=== PATIENT | female | born 1995 | race Two or more races ===

== ENCOUNTER 2019-03-03 14:08 | Observation (INO) | payer MEDICAID ==
[~2019-03-03 14:08] MED LIST: PREN27TA7 OR
== END 2019-03-03 15:55 | disposition home or self-care (01) | DRG 861 ==
LOC: LDRP 14:08
PROVIDERS: ADMIT Specialist; ATTEND Specialist
DX: Z34.83 Encounter for supervision of other normal pregnancy, third trimester (principal); Z3A.40 40 weeks gestation of pregnancy
CPT/HCPCS: 59025; 76818; 81002; G0378

== ENCOUNTER 2019-03-05 10:10 | Observation (INO) | payer MEDICAID | END 2019-03-05 11:45 | disposition home or self-care (01) | DRG 566 | LOC: LDRP 10:10 | PROVIDERS: ADMIT Obstetrics & Gynecology; ATTEND Obstetrics & Gynecology | DX: O48.0 Post-term pregnancy (principal); O36.8330 Maternal care for abnormalities of the fetal heart rate or rhythm, third trimester, not applicable or unspecified; Z3A.40 40 weeks gestation of pregnancy | CPT/HCPCS: 59025; 76818; 81002; G0378 ==

== ENCOUNTER 2019-03-06 15:30 | Inpatient (IN) | payer MEDICAID ==
[2019-03-06] MEDS ORDERED: LACT. RINGERS/OXYTOCIN 20UNITS 1,000 ML IV SCH (16:07)
[2019-03-06] MEDS ORDERED: NALBUPHINE HCL 10 MG/1ml INJECTION IV PRN (16:15)
[2019-03-06] MEDS ORDERED: METHYLERGONOVINE MALEATE 0.2 MG/ML AMP IM PRN (16:15)
[2019-03-06] MEDS ORDERED: LIDOCAINE 2%HCL (LOCAL ANESTH.) INJ 20ML MDV ID ONE (16:15)
[2019-03-06] MEDS ORDERED: DERMOPLAST 60ML BOTTLE TOP PRN (16:15)
[2019-03-06] MEDS ORDERED: WITCH HAZEL-GLYCERIN PAD TOP PRN (16:15)
[2019-03-06] MEDS ORDERED: PHISODERM TOP SOLN 240ML BTL TOP PRN (16:15)
[2019-03-06] MEDS ORDERED: CARBOPROST TROMETHAMINE 250 MCG/1ML VIAL IM PRN (16:15)
[2019-03-06 17:21] LABS: Basophils # (auto) 0 uL; Basophils % (auto) 0.3 % (0.0-2.0); Eosinophils # (auto) 0.1 uL; Eosinophils % (auto) 0.4 % (0.0-7.0); Hematocrit 40.3 % (36.0-46.0); Hemoglobin 13.8 g/dL (12.2-16.2); Lymphocytes # (auto) 2.2 uL; Lymphocytes % (auto) 14.3 % (10.0-50.0); Mean Corpuscular Hemoglobin 32.5 pg (28.0-32.0); Mean Corpuscular Hgb Conc. 34.2 g/dL (32.0-36.0); Monocytes # (auto) 0.9 uL; Monocytes % (auto) 5.6 % (0.0-12.0); Neutrophils # (auto) 12.1 uL; Neutrophils % (auto) 79.4 % (37.0-80.0); Nucleated Red Blood Cells % 0.1 %; Platelet Count (auto) 178 10^3/uL (140-450); Red Blood Cells 4.24 10^6/uL (4.0-5.20); Red Cell Distribution Width 13.6 % (11.8-14.3); White Blood Cell 15.3 10^3/uL (4.4-10.8)
[2019-03-06 17:26] LABS: Urine Bacteria FEW /hpf (None Seen); Urine Blood Negative /uL (Negative); Urine Mucus FEW (None Seen); Urine Specific Gravity 1.022 (1.001-1.035); Urine WBC 3 /hpf (0 - 5)
[2019-03-06 17:35] LABS: INR < 0.93 (0.9-1.15); Partial Thromboplastin Time 26.2 sec (23.64-32.05)
[2019-03-06 17:36] LABS: Alcohol, Urine < 3.0 mg/dL (0-5); Amphetamine Screen, Urine NEGATIVE (NEGATIVE); Barbiturate Scree,Urine NEGATIVE (NEGATIVE); Benzodiazephine Screen, Urine NEGATIVE (NEGATIVE); Cannabinoid Screen, Urine NEGATIVE (NEGATIVE); Cocaine Screen, Urine NEGATIVE (NEGATIVE); Opiate Scree,Urine NEGATIVE (NEGATIVE); Phencyclidine Screen, Urine NEGATIVE (NEGATIVE)
[2019-03-06 17:37] LABS: Albumin 3.4 g/dL (3.4-5.0); Calcium 9.2 mg/dL (8.5-10.1); Potassium 3.2 mmol/L (3.5-5.1); Uric Acid 4.1 mg/dL (2.6-6.0)
[2019-03-06 17:40] LABS: Bilirubin, Total 0.2 mg/dL (0.2-1.0); Total Protein 7.5 g/dL (6.4-8.2)
[2019-03-06] MEDS: IBUPROFEN 600 MG TAB PO PRN (18:08)
--- NOTE | 2019-03-06 18:12 | NUR ---
received report on stable pt from Yarelis Watkins rn.
--- NOTE | 2019-03-06 19:30 | NUR ---
Ambulation: Patient OOB with standby assistance by RN. Patient ambulated to bathroom with steady gait. Patient able to void 500ML without difficulty. [facility] teaching provided with returned demonstration by patient. Clean gown provided and bed linen changed. Patient ambulated back to bed with steady gait and no distress noted.
[2019-03-06 23:30] VITALS: BP 102/64
[2019-03-07 02:46] VITALS: BP 102/67
[2019-03-07 07:20] VITALS: BP 108/57
[2019-03-07 10:58] VITALS: BP 113/65
[2019-03-07 15:30] VITALS: BP 108/71
[2019-03-07] MEDS: IBUPROFEN 600 MG TAB PO PRN (15:44)
[2019-03-07 19:30] VITALS: BP 103/63
--- NOTE | 2019-03-07 19:40 | NUR ---
Discharge: Discharge instructions given as ordered. Pt encouraged to follow up with [facility] as instructed. All questions and concerns addressed. Patient verbalized understanding. Medication reconciliation completed and copy given to patient. All required/requested vaccines given and copies of vaccinations given to patient. Patient encouraged to prepare to depart unit.
[2019-03-07 20:15] VITALS: BP 102/65
--- NOTE | 2019-03-07 20:15 | NUR ---
Discharge: Patient ambulates to vehicle per patient request, with steady gait. All personal belongings accounted for, DC instructions in hand, accompanied by staff and family member. No distress noted at time of departure, no adverse changes in status since initial assessment.
[2019-03-08 05:07] LABS: RPR Non Reactive (Non Reactive)
== END 2019-03-07 20:15 | disposition home or self-care (01) | DRG 560 ==
LOC: LDRP 15:30 → OBSVTOIN 16:02 → LDRP 16:49
PROVIDERS: ADMIT Specialist; ATTEND Specialist
PROC: 10E0XZZ Delivery of Products of Conception, External Approach (ICD-10-PCS; principal; 2019-03-06)
PROC: 0HQ9XZZ Repair Perineum Skin, External Approach (ICD-10-PCS; 2019-03-06)
DX: O70.0 First degree perineal laceration during delivery (principal); Z37.0 Single live birth; Z3A.40 40 weeks gestation of pregnancy
CPT/HCPCS: 36415; 59025; 80053; 80307; 81001; 81002; 84112; 84550; 85025; 85610; 85730; 86592; 86850; 86900; 86901; 96361; 96366; G0378; J2590

== ENCOUNTER 2022-05-26 09:20 | Inpatient (IN) | payer MEDICAID ==
[~2022-05-26] VITALS: Ht 172.7 cm; Wt 83.9 kg
[2022-05-26] MEDS ORDERED: LACT. RINGERS/OXYTOCIN 20UNITS 500 ML IV ONE ×2 (14:30→15:00)
[2022-05-26] MEDS ORDERED: LIDOCAINE 2%HCL (LOCAL ANESTH.) INJ 20ML MDV IJ PRN (14:30)
[2022-05-26] MEDS ORDERED: PROMETHAZINE HCL 25 MG/ML 1ML IV PRN (14:30)
[2022-05-26] MEDS ORDERED: TERBUTALINE SULFATE 1 MG/ML 1ML VIAL SC PRN (14:30)
[2022-05-26] MEDS ORDERED: WITCH HAZEL-GLYCERIN PAD TOP PRN (14:30)
[2022-05-26] MEDS ORDERED: BUTORPHANOL TARTRATE 2 MG/1 ML VIAL IV PRN ×2 (14:30)
[2022-05-26] MEDS ORDERED: DERMOPLAST 60ML BOTTLE TOP PRN (14:30)
[2022-05-26] MEDS ORDERED: PHISODERM TOP SOLN 240ML BTL TOP PRN (14:30)
[2022-05-26] MEDS ORDERED: LACT. RINGERS/OXYTOCIN 20UNITS 1,000 ML IV SCH (14:45)
[2022-05-26] MEDS: LACTATED RINGER'S 1,000 ML IV SCH ×2 (15:00→15:16)
[2022-05-26 15:10] LABS: Basophils # (auto) 0 10 ^3/uL (0-0.2); Basophils % (auto) 0.2 % (0.0-2.0); Eosinophils # (auto) 0.1 10 ^3/uL (0-0.8); Hematocrit 35.6 % (36.0-46.0); Hemoglobin 11.8 g/dL (12.2-16.2); Lymphocytes # (auto) 1.5 10 ^3/uL (0.4-5.4); Lymphocytes % (auto) 12.2 % (10.0-50.0); Mean Corpuscular Hemoglobin 29.2 pg (28.0-32.0); Mean Corpuscular Volume 88.4 fL (80.0-100.0); Monocytes # (auto) 0.6 10 ^3/uL (0-1.3); Monocytes % (auto) 4.8 % (0.0-12.0); Neutrophils # (auto) 9.7 10 ^3/uL (1.6-8.6); Neutrophils % (auto) 81.8 % (37.0-80.0); Nucleated Red Blood Cells % 0.3 %; Red Blood Cells 4.03 10^6/uL (4.0-5.20); Red Cell Distribution Width 14.4 % (11.8-14.3); White Blood Cell 11.9 10^3/uL (4.4-10.8)
[2022-05-26 15:24] LABS: INR 0.93 (0.9-1.15); Partial Thromboplastin Time 27.6 sec (24.6-33.4)
[2022-05-26 15:25] LABS: Potassium 3.7 mmol/L (3.5-5.1)
[2022-05-26 15:27] LABS: BUN/Creatinine Ratio 21.2
[2022-05-26 15:30] LABS: Bilirubin, Total 0.3 mg/dL (0.2-1.0); Total Protein 6.9 g/dL (6.4-8.2)
[2022-05-26] MEDS ORDERED: LIDOCAINE HCL 2 %PF INJ 10ML AMP IJ ONE (15:45)
[2022-05-26] MEDS ORDERED: ROPIVACAINE HCL 200 ML EPI SCH (15:45)
[2022-05-26] MEDS ORDERED: fentaNYL CITRATE 100 MCG/2 ML VL IV ONE (15:45)
[2022-05-26] MEDS ORDERED: LACTATED RINGER'S 1,000 ML IV ONE (15:45)
[2022-05-26] MEDS ORDERED: ePHEDrine SULFATE 50 MG/ML AMP IV ONE (15:45)
[2022-05-26] MEDS ORDERED: METHYLERGONOVINE MALEATE 0.2 MG/ML AMP IM PRN (16:30)
[2022-05-26] MEDS ORDERED: DIPHENOXYLATE W/ATROPINE 2.5 MG TAB ONE (16:56)
[2022-05-26] MEDS ORDERED: ONDANSETRON HCL 4 MG/2 ML VIAL ONE (16:56)
[2022-05-26] MEDS ORDERED: CARBOPROST TROMETHAMINE 250 MCG/1ML VIAL IM ONE ×2 (16:57→17:01)
[2022-05-26] MEDS ORDERED: ONDANSETRON HCL 4 MG/2 ML VIAL IV PRN ×2 (17:00→18:00)
[2022-05-26] MEDS ORDERED: miSOPROStol 100 mcg TAB PR PRN (17:00)
[2022-05-26] MEDS ORDERED: CARBOPROST TROMETHAMINE 250 MCG/1ML VIAL IM PRN (17:00)
[2022-05-26 17:35] LABS: Urine Bacteria NONE SEEN /hpf (None Seen); Urine Blood 1+ /uL (Negative); Urine Mucus FEW (None Seen); Urine Specific Gravity 1.018 (1.001-1.035); Urine WBC 1 /hpf (0 - 5)
[2022-05-26 17:47] LABS: Alcohol, Urine < 3.0 mg/dL (0-10); Amphetamine Screen, Urine NEGATIVE (NEGATIVE); Barbiturate Scree,Urine NEGATIVE (NEGATIVE); Benzodiazephine Screen, Urine NEGATIVE (NEGATIVE); Cannabinoid Screen, Urine NEGATIVE (NEGATIVE); Cocaine Screen, Urine NEGATIVE (NEGATIVE); Opiate Scree,Urine NEGATIVE (NEGATIVE); Phencyclidine Screen, Urine NEGATIVE (NEGATIVE)
[2022-05-26] MEDS ORDERED: ACETAMINOPHEN 325 MG TAB PO PRN (18:00)
[2022-05-26] MEDS ORDERED: IBUPROFEN 600 MG TAB PO PRN (18:00)
[2022-05-26 21:00] VITALS: BP 105/50
[2022-05-26] MEDS ORDERED: DIPHENOXYLATE W/ATROPINE 2.5 MG TAB PO SCH (22:00)
[2022-05-26 23:00] VITALS: BP 107/51
[2022-05-27 02:42] VITALS: BP 96/54
[2022-05-27 07:00] VITALS: BP 100/54
[2022-05-27 08:06] LABS: RPR Non Reactive (Non Reactive)
[2022-05-27 11:00] VITALS: BP 99/55
[2022-05-27 15:00] VITALS: BP 100/58
[2022-05-27] MEDS ORDERED: miSOPROStol 100 mcg TAB PO ONE (18:43)
[2022-05-27 19:30] VITALS: BP 98/59
== END 2022-05-27 20:16 | disposition home or self-care (01) | DRG 560 ==
LOC: LDRP 11:45 → OBSVTOIN 13:45 → LDRP 13:59
PROVIDERS: ADMIT Obstetrics & Gynecology; ATTEND Obstetrics & Gynecology
PROC: 10E0XZZ Delivery of Products of Conception, External Approach (ICD-10-PCS; principal; 2022-05-26)
PROC: 0KQM0ZZ Repair Perineum Muscle, Open Approach (ICD-10-PCS; 2022-05-26)
DX: O70.1 Second degree perineal laceration during delivery (principal); Z37.0 Single live birth; Z20.822 Contact with and (suspected) exposure to COVID-19; Z3A.40 40 weeks gestation of pregnancy
CPT/HCPCS: 36415; 59025; 59409; 76818; 80053; 80307; 81001; 81002; 85025; 85610; 85730; 86592; 86850; 86900; 86901; 87426; 94760; 96360; 96361; 96365; 96366; 96372; 96374; G0378; J2405; J2590